=== PATIENT | female | born 1950 | race Asian ===

== ENCOUNTER 2023-11-12 09:52 | Outpatient (CLI) | payer MEDICARE ==
[2023-11-12 10:15] LABS: ABG HCO3 25.3 mmol/L (22.0-26.0); ABG OXYGEN SATURATION 96.7 % (94-97); ABG PCO2 (T) 39.7 mmHg (32.0-45.0); ABG PH (T) 7.423 (7.350-7.450); ABG PO2 (T) 87.6 mmHg (75.0-100.0); ALLEN'S TEST POSITIVE; FCOHb 0.1 % (0.0-3.9); FHHb 3.3 % (0.0-5.0); FMetHb 0.2 % (0.0-1.5); FO2Hb 96.4 % (94-97); MODE ROOM AIR; TOTAL HEMOGLOBIN 14.2 G/dl (12.0-16.0)
== END 2023-11-12 23:59 | disposition home or self-care (01) ==
LOC: RT 09:52
PROVIDERS: ATTEND Surgery
DX: J98.4 Other disorders of lung (principal)
CPT/HCPCS: 36600; 82803; 85018; 94010; 94727; 94729

== ENCOUNTER 2023-11-19 12:55 | Outpatient (CLI) | payer MEDICARE | END 2023-11-19 23:59 | disposition home or self-care (01) | LOC: RAD 12:55 | PROVIDERS: ATTEND Otolaryngology | DX: R13.14 Dysphagia, pharyngoesophageal phase (principal); R05.3 Chronic cough | CPT/HCPCS: 74230 ==

== ENCOUNTER 2023-12-22 10:27 | Outpatient (CLI) | payer MEDICARE ==
[~2023-12-22 10:27] MED LIST: ATEN1TAB46 PO; CIME200T95 PO; FENO48TA10 PO; LANS15TA5 PO; MULT-1085 PO; SYN0.088T PO
== END 2023-12-22 23:59 | disposition home or self-care (01) ==
LOC: RAD 10:27
PROVIDERS: ATTEND Family Medicine
DX: R07.9 Chest pain, unspecified (principal)
CPT/HCPCS: 71046

== ENCOUNTER 2024-01-29 08:37 | Outpatient (CLI) | payer MEDICARE ==
[2024-01-28 09:38] LABS: ALBUMIN 3.7 G/DL (3.4-5.0); ANION GAP 6 (8-16); BLOOD UREA NITROGEN 13 MG/DL (7-18); CALCIUM 9.5 MG/DL (8.5-10.1); CHLORIDE 104 MMOL/L (99-107); CREATININE 0.81 MG/DL (0.40-0.90); GLUCOSE 116 MG/DL (70-104); POTASSIUM 4.2 MMOL/L (3.5-5.1); SODIUM 140 MMOL/L (135-145); TOTAL CARBON DIOXIDE 29.8 MMOL/L (24-32); eGFR 70 ML/MIN
[2024-01-29] MEDS ORDERED: iohexol 300mg/ml 100ml inj. ONE (09:14)
== END 2024-01-29 23:59 | disposition home or self-care (01) ==
LOC: RAD 08:37
PROVIDERS: ATTEND Surgery
DX: N20.0 Calculus of kidney (principal); I83.93 Asymptomatic varicose veins of bilateral lower extremities; R22.2 Localized swelling, mass and lump, trunk; Z90.49 Acquired absence of other specified parts of digestive tract
CPT/HCPCS: 36415; 71260; 74177; 80048; J3490; Q9967

== ENCOUNTER 2025-01-19 08:11 | Outpatient (CLI) | payer MEDICARE | END 2025-01-19 23:59 | disposition home or self-care (01) | LOC: RAD 08:11 | PROVIDERS: ATTEND Family Medicine | DX: N20.0 Calculus of kidney (principal); R10.12 Left upper quadrant pain; R10.9 Unspecified abdominal pain | CPT/HCPCS: 74176 ==

== ENCOUNTER 2025-07-28 12:29 | Outpatient (CLI) | payer MEDICARE ==
[2025-07-27 08:44] LABS: CREATININE 0.80 MG/DL (0.40-0.90); TOTAL CARBON DIOXIDE 30.2 MMOL/L (24-32); eGFR 70 ML/MIN
[~2025-07-28 12:29] MED LIST changes: +iohexol 300 MG/1 ML 50ml polymer ONE; +iohexol 300mg/ml 100ml inj. ONE
--- NOTE | 2025-07-28 14:00 | RADIOLOGY REPORT ---
Procedure: CT CT CHEST W/ IV CONTRAST 07/28/2025 01:05 PM History: NEOPLASM OF UNCERTAIN BEHAVIOR OF TRACHEA, BRONCHUS AND LUNG Comparison: CT CT CHEST ABDOMEN PELVIS on DOS: 01/29/24 Technique: After the uneventful administration of contrast intravenously, CT imaging was performed through the chest. Coronal and sagittal reformations were performed by the technologist. Radiation Dose : CT Dose: CTDI volume is 9.1 mGy. Dose-length product is 361.9 mGy*cm Findings: Lower neck: Normal thyroid. Lungs: No focal consolidation. Scarring/postsurgical change in the medial right upper lobe. There is slightly decreased soft-tissue component. No suspicious pulmonary nodule. Heart/Vascular Structures: Normal heart size. No pericardial effusion. Lymph Nodes: No adenopathy Pleura: No pleural effusion or significant pneumothorax. Musculoskeletal: No acute osseous abnormality. Soft tissues: Normal. Upper abdomen: Post cholecystectomy. Hepatic steatosis. IMPRESSION: Post surgical changes in the medial right upper lobe with slight interval decrease in soft-tissue component when compared to CT dated 01/29/2024. No new acute or suspicious thoracic findings.
--- NOTE | 2025-07-28 14:34 | RADIOLOGY REPORT ---
CT Neck with Contrast CLINICAL HISTORY: NEOPLASM OF UNCERTAIN BEHAVIOR OF TRACHEA, BRONCHUS AND LUNG TECHNIQUE: CT of the neck was performed with 150 ml of omnipaque 300 administered intravenously. This exam was performed according to our departmental dose optimization program. Up-to-date CT equipment and radiation dose reduction techniques are utilized as appropriate. WID: COMPARISON: None Neck findings: Brain and Orbits: The visualized intracranial and intraorbital structures appear grossly unremarkable. Sinuses and Mastoids: The visualized paranasal sinuses and mastoid air cells are clear aside from small left mastoid air cell effusion. Parotid and Submandibular Glands: The parotid and submandibular glands appear unremarkable. Cervical Lymph Nodes: No significant cervical adenopathy is seen. Thyroid: There appears to have been prior thyroidectomy Larynx and Hypopharynx: The larynx and hypopharynx appear normal. Oral Cavity, Oropharynx, and Nasopharynx: The base of the tongue, oropharyngeal region, and posterior nasopharynx appear unremarkable. Cervical Vasculature: The carotid arteries are patent. Mild calcified plaque in the aortic arch. Minimal calcified plaque in the bilateral carotid bifurcations. Osseous Structures: Multilevel cervical spondylosis. Visualized Upper Lungs: See separately dictated same day CT chest for discussion. IMPRESSION: 1. No soft tissue mass, fluid collection, or cervical lymphadenopathy.
== END 2025-07-28 23:59 | disposition home or self-care (01) ==
LOC: RAD 12:29
PROVIDERS: ATTEND Surgery
DX: Z01.818 Encounter for other preprocedural examination (principal); D38.1 Neoplasm of uncertain behavior of trachea, bronchus and lung; G93.6 Cerebral edema; K76.0 Fatty (change of) liver, not elsewhere classified; R05.1 Acute cough; Z90.49 Acquired absence of other specified parts of digestive tract; Z98.890 Other specified postprocedural states
CPT/HCPCS: 36415; 70491; 71260; 80048; Q9967